=== PATIENT | male | born 1985 | race African-American/Black ===

== ENCOUNTER 2017-06-25 03:49 | Emergency (ER) | payer MEDICAID, OTHER ==
[~2017-06-25] VITALS: Ht 180.3 cm; Wt 127.0 kg
[~2017-06-25 03:49] MED LIST: ALBUTEROL SULF8.5 GM INH; AMOXICILLIN500 MG ORAL; IBUPROFEN600 MG PO; NORCO 5-325 TA1 EACH ORAL; SOMA350 MG PO; VALIUM5 MG PO; VIBRAMYCIN100 MG ORAL; VICODIN 5-5001 EACH PO; ZANTAC150 MG PO; advair; albuterol
[2017-06-25 04:03] VITALS: BP 121/78
[2017-06-25] MEDS ORDERED: HYDROCORTISONE-30 GM TOPIC (04:06)
--- NOTE | 2017-06-25 04:09 | Emergency Room Report ---
History of Present Illness General Chief Complaint: Upper Extremity Injury Source: Patient Present Illness HPI 32-year-old male with significant past medical history presenting with right hand tingling. Patient states about 3 weeks ago, the glass in his car shattered , a little pieces of glass cut his right hand, states that he took the glass out himself, and wounds healed on its own. Patient states now he has been having intermittent tingling to palmar surface, patient has been able to move hand without any issue. Also states that he has chronic eczema and would like hydrocortisone cream Allergies: Coded Allergies: No Known Allergies (Unverified , 12/04/12) Patient History Past Medical History: see triage record Past Surgical History: none Pertinent Family History: none Reviewed Nursing Documentation: PMH: Agreed, PSxH: Agreed Nursing Documentation-PMH Hx Hypertension: Yes Hx Asthma: Yes Hx Neurological Problems: Yes - sleep apnea Review of Systems All Other Systems: negative except mentioned in HPI Physical Exam Vital Signs Date Time Temp Pulse Resp B/P (MAP) Pulse Ox O2 Delivery O2 Flow Rate FiO2 06/25/17 03:53 98.1 90 16 121/78 96 Room Air Sp02 EP Interpretation: reviewed, normal General Appearance: normal inspection, well appearing, no apparent distress, alert, GCS 15, non-toxic Head: normocephalic, atraumatic Eyes: bilateral eye normal inspection, bilateral eye PERRL, bilateral eye EOMI ENT: normal ENT inspection, normal pharynx, normal voice, moist mucus membranes Neck: normal inspection, full range of motion, supple Respiratory: normal inspection, lungs clear, normal breath sounds, no respiratory distress, no retraction, no wheezing, speaking full sentences, chest symmetrical Cardiovascular #1: normal inspection, regular rate, rhythm, no edema, normal capillary refill Cardiovascular #2: 2+ radial (R), 2+ radial (L) Gastrointestinal: normal inspection, non tender, soft, non-distended, no guarding Genitourinary: no CVA tenderness Musculoskeletal: normal range of motion, non-tender, other - Right palmar surface, well-healed tiny lacerations, no erythema, no purulent drainage, and no foreign body palpated Neurologic: normal inspection, alert, oriented x3, responsive, motor strength/ tone normal, sensory intact, normal gait, speech normal Psychiatric: normal inspection, judgement/insight normal, memory normal Skin: normal inspection, normal color, no rash, warm/dry, well hydrated, normal turgor Medical Decision Making Diagnostic Impression: Primary Impression: Hand tingling ER Course 32-year-old male with right hand tingling for 3 weeks after getting glass shattered onto hand no signs of infection DDX: Rule out Foreign body Plan: Right hand x-ray ER course: Patient has remained stable during ED stay. XR no abnormalities seen Disposition: Patient is to be discharged to home. Patient is instructed to follow up with their primary care doctor within 5 days. Patient also instructed if he wants tiny glass removed he should consult surgery outpatient Patient also discharged with prescription for hydrocortisone cream for his eczema Please note that this Emergency Department Report was dictated using [employer] technology software, occasionally this can lead to erroneous entry secondary to interpretation by the dictation equipment Xray ordered: Right hand 3 view Indication: Pain EP Interpretation: Yes Interpretation: No dislocation, no soft tissue swelling, no fractures, no fb seen Impression: No acute disease Electronically signed by George Chadwick MD Last Vital Signs Date Time Temp Pulse Resp B/P (MAP) Pulse Ox O2 Delivery O2 Flow Rate FiO2 06/25/17 04:03 98.1 90 16 121/78 96 Room Air Disposition: HOME, SELF-CARE Condition: Stable Scripts Hydrocortisone/Aloe Vera 1%* (HYDROCORTISONE-ALOE 1% CREAM*) Y Cr 1 APPLIC TOPIC Q6H Y for Itching for 14 Days, #30 GM 0 Refills Prov: George Chadwick M.D. 06/25/17 Additional Instructions: Please followup with your primary care doctor in one week George Chadwick M.D. Jun 25, 2017 04:09
[2017-06-25 04:29] VITALS: BP 121/80
--- NOTE | 2017-06-25 08:52 | Diagnostic Imaging Report ---
Indication: Right hand pain Technique: XRAY HAND MIN 3V RIGHT Comparison: None Findings: There is no radiographically evident fracture or dislocation. Bone mineralization is normal. Soft tissues are grossly unremarkable. Impression: No radiographically evident acute osseous abnormality.
== END 2017-06-25 04:30 | disposition home or self-care (01) ==
LOC: EMR 04:03
DX: R20.2 Paresthesia of skin (principal); I10 Essential (primary) hypertension; J45.909 Unspecified asthma, uncomplicated
CPT/HCPCS: 99283

== ENCOUNTER 2017-07-10 22:43 | Emergency (ER) | payer OTHER ==
[~2017-07-10] VITALS: Ht 180.3 cm; Wt 117.9 kg
[~2017-07-10 22:43] MED LIST changes: +HYDROCORTISONE-30 GM TOPIC
[2017-07-10 23:05] VITALS: BP 158/93
[2017-07-10] MEDS ORDERED: SINGULAIR10 MG ORAL (23:05)
[2017-07-10] MEDS ORDERED: ASPIR 8181 MG ORAL (23:05)
[2017-07-10] MEDS ORDERED: IBUPROFEN600 MG ORAL (23:59)
[2017-07-11] MEDS ORDERED: Ketorolac 60mg Inj IM ONE
[2017-07-11] MEDS ORDERED: CYCLOBENZAPRINE10 MG ORAL (00:14)
[2017-07-11 00:25] VITALS: BP 149/89
--- NOTE | 2017-07-11 04:08 | Emergency Room Report ---
History of Present Illness General Chief Complaint: Lower Back Pain or Injury Source: Patient Present Illness HPI Patient is a 32-year-old male who presented after increased low back pain. Patient gradual onset of symptoms. Patient states that he had prior history of back disease. He had previous been told that he had slipped disc the patient previous back injury. The patient had been working as a auto driver. He reported having worsening pain after lifting some objects. He denied leg pain or swelling. He denied any numbness to his extremities. he reported having normal bowel and bladder function. He reported being unable to ambulate initially. The patient stated that he take a [place] 10/325 with minimal change in the pain. The patient reports not being prescribed [place] Allergies: Coded Allergies: No Known Allergies (Unverified , 12/04/12) Patient History Past Medical History: see triage record Reviewed Nursing Documentation: PMH: Agreed, PSxH: Agreed Nursing Documentation-PMH Hx Hypertension: Yes Hx Asthma: Yes Hx Neurological Problems: Yes - sleep apnea Review of Systems All Other Systems: negative except mentioned in HPI Physical Exam Vital Signs Date Time Temp Pulse Resp B/P (MAP) Pulse Ox O2 Delivery O2 Flow Rate FiO2 07/10/17 23:01 98.1 92 18 158/93 98 Room Air General Appearance: well appearing, no apparent distress, alert, GCS 15, obese Head: normocephalic, atraumatic ENT: hearing grossly normal, normal voice Neck: full range of motion, supple Respiratory: no respiratory distress, speaking full sentences Musculoskeletal: no calf tenderness, decreased range of mation - back Neurologic: normal inspection, alert, oriented x3, responsive, motor strength/ tone normal, normal gait Psychiatric: normal inspection, mood/affect normal Skin: no rash Medical Decision Making Diagnostic Impression: Primary Impression: Back pain ER Course Patient presented for back pain. Differential diagnosis included but was not limited to herniated disc, cauda equina syndrome, abdominal aortic aneurysm, perforated ulcer, spinal epidural abscess, spinal stenosis, lumbar fracture, metastatic lesion, pyelonephritis. Patient's benign exam and does not appear to require any further imaging or laboratory testing at this time. The patient denied recent trauma. Patient does not have any evidence of acute cord compression. Had prior history of lumbar disc disease this is likely an exacerbation of his lumbar disc disease. The patient was offered CT imaging and he declined. Patient was advised followup with his primary care physician. patient was given prescription for Flexeril as well as ibuprofen. Patient was given a note for work Last Vital Signs Date Time Temp Pulse Resp B/P (MAP) Pulse Ox O2 Delivery O2 Flow Rate FiO2 07/11/17 00:25 94 16 149/89 99 Room Air 07/10/17 23:05 98.1 Status: improved Disposition: HOME, SELF-CARE Condition: Stable Scripts Cyclobenzaprine Hcl* (FLEXERIL*) 10 Mg Tablet 10 MG ORAL TID Y for Muscle Spasm, #20 TAB Prov: Carroll Pichardo 07/11/17 Ibuprofen* (MOTRIN*) 600 Mg Tablet 600 MG ORAL Q8H Y for For Pain, #30 TAB 0 Refills Prov: Carroll Pichardo 07/10/17 Departure Forms: Return to Work Return to Work in (Days): 4 Patient Instructions: Back Pain, Adult Carroll Pichardo Jul 11, 2017 04:08
== END 2017-07-11 00:29 | disposition home or self-care (01) ==
LOC: EMR 23:43
DX: M54.5 Low back pain (principal); M51.36 Other intervertebral disc degeneration, lumbar region; I10 Essential (primary) hypertension; J45.909 Unspecified asthma, uncomplicated; G47.30 Sleep apnea, unspecified
CPT/HCPCS: 99283

== ENCOUNTER 2018-01-27 16:53 | Emergency (ER) | payer SELFPAY ==
[~2018-01-27] VITALS: Ht 180.3 cm; Wt 124.7 kg
[~2018-01-27 16:53] MED LIST changes: +ASPIR 8181 MG ORAL; +CYCLOBENZAPRINE10 MG ORAL; +IBUPROFEN600 MG ORAL; +SINGULAIR10 MG ORAL
[2018-01-27 17:25] VITALS: BP 123/81
[2018-01-27] MEDS ORDERED: Lidocaine 1% MPF 10mg/ml 5ml INJ ONE (17:30)
[2018-01-27] MEDS ORDERED: Azithromycin 250mg tab ORAL ONE (17:30)
[2018-01-27 17:47] VITALS: BP 123/81
--- NOTE | 2018-01-28 14:15 | Emergency Room Report ---
History of Present Illness General Chief Complaint: Male Urogenital Problems Source: Patient Present Illness HPI 32-year-old male presents ED for evaluation. Notes burning urination 2 days with discharge. States he had recent unprotected sex had similar presentation in the past and was treated for STI. Denies any pain. Denies any scrotal tenderness. Denies any fevers or chills, denies flank pain. No other aggravating relieving factors. Denies any other associated symptoms Allergies: Coded Allergies: No Known Allergies (Unverified , 12/04/12) Patient History Past Medical History: HTN Past Surgical History: none Pertinent Family History: none Social History: Denies: smoking, alcohol use, drug use Immunizations: UTD Reviewed Nursing Documentation: PMH: Agreed; PSxH: Agreed Nursing Documentation-PMH Past Medical History: No History, Except For Hx Hypertension: Yes Hx Asthma: Yes - Bronchitis Hx Neurological Problems: Yes - sleep apnea Review of Systems All Other Systems: negative except mentioned in HPI Physical Exam Vital Signs Date Time Temp Pulse Resp B/P (MAP) Pulse Ox O2 Delivery O2 Flow Rate FiO2 01/27/18 16:57 98.4 106 18 123/81 95 Room Air 98.4 Sp02 EP Interpretation: reviewed, normal General Appearance: no apparent distress, alert, GCS 15, non-toxic Head: normocephalic, atraumatic Eyes: bilateral eye normal inspection, bilateral eye PERRL ENT: hearing grossly normal, normal pharynx, no angioedema, normal voice Neck: full range of motion, supple/symm/no masses Respiratory: chest non-tender, lungs clear, normal breath sounds, speaking full sentences Cardiovascular #1: regular rate, rhythm, no edema Cardiovascular #2: 2+ carotid (R), 2+ carotid (L), 2+ radial (R), 2+ radial (L) , 2+ dorsalis pedis (R), 2+ dorsalis pedis (L) Gastrointestinal: normal bowel sounds, non tender, soft, non-distended, no guarding, no rebound Rectal: deferred Genitourinary: normal inspection, no CVA tenderness Musculoskeletal: back normal, gait/station normal, normal range of motion, non- tender Neurologic: alert, oriented x3, responsive, motor strength/tone normal, sensory intact, speech normal Psychiatric: judgement/insight normal, memory normal, mood/affect normal, no suicidal/homicidal ideation Reflexes: 3+ bicep (R), 3+ bicep (L), 3+ tricep (R), 3+ tricep (L), 3+ knee (R) , 3+ knee (L) Skin: normal color, no rash, warm/dry, well hydrated Lymphatic: no adenopathy Medical Decision Making Diagnostic Impression: Primary Impression: Urethritis ER Course Hospital Course 32-year-old male presents ED with urethral discharge. History of unprotected sex Differential diagnoses include: trichimonas, gonorrhea, chlamydia Clinical course Patient placed on stretcher. After initial history physical exam reveals a male in no acute distress. Physical exam unremarkable. No testicular pain or swelling. No noted urethral discharge We will treat him clinically for gonorrhea/Chlamydia Given azithromycin/Rocephin in ED Diagnosis - STI, urethritis Stable and discharged home. Instructed to followup with PMD. Return to ED if symptoms recur or worsen Last Vital Signs Date Time Temp Pulse Resp B/P (MAP) Pulse Ox O2 Delivery O2 Flow Rate FiO2 01/27/18 17:47 98.4 72 18 123/81 95 Room Air 98.4 Status: improved Disposition: HOME, SELF-CARE Condition: Stable Referrals: NOT CHOSEN IPA/,REFERRING (PCP) Patient Instructions: Urethritis, Adult Dayron Lyn MD January 28, 2018 14:15
== END 2018-01-27 17:48 | disposition home or self-care (01) ==
LOC: EMR 17:38
DX: N34.2 Other urethritis (principal); I10 Essential (primary) hypertension; J45.909 Unspecified asthma, uncomplicated; G47.30 Sleep apnea, unspecified
CPT/HCPCS: 96372; 99283; J0696